=== PATIENT | female | born 1965 | race Caucasian/White ===

== ENCOUNTER 2018-01-13 13:52 | Emergency (ER) | payer SELFPAY ==
[~2018-01-13] VITALS: Ht 165.1 cm; Wt 60.0 kg
[~2018-01-13 13:52] MED LIST: Z.0.NO CURRENT MEDS
[2018-01-13 13:54] VITALS: BP 170/89; PULSE 96; RESP 16; TEMP 97.9; O2SAT 97
--- NOTE | 2018-01-13 14:39 | PD ---
HPI Chief Complaint: Numbness/Tingling Time Seen by Provider: 13:56 Travel History International Travel<30 days: No Contact w/Intl Traveler<30days: No Traveled to known affect area: No History of Present Illness HPI Patient 52-year-old female presents emergency department for evaluation of numbness tingling and painful electric shock sensations going down her left arm for the past 3 days. Patient states she does not have a primary care physician has not had a checkup in about 7 years. Patient went to outside facility and was told to come here because she might be having a stroke. She denies any focalized weakness. Her only other symptoms that she is endorsing some very vague visual blurriness throughout both eyes. She denies any chest pain denies any shortness of breath. States the pain is coming and going, left arm, context as above, associated signs and symptoms as above PFSH Past Medical History Anxiety: Yes Diminished Hearing: No Tetanus Vaccination: < 5 Years Influenza Vaccination: No ?: Not : 3 Past Surgical History Surgical History: No Previous Surgery Social History Alcohol Use: No Tobacco Use: No Substance Use: No Allergies-Medications (Allergen,Severity, Reaction): Coded Allergies: No Known Allergies (Unverified , 04/30/13) Reported Meds & Prescriptions Reported Meds & Active Scripts Active Prednisone 20 Mg Tab 60 Mg PO DAILY 5 Days Review of Systems Except as stated in HPI: all other systems reviewed are Neg Physical Exam Narrative GENERAL: Well-developed well-nourished, quite pleasant female in no obvious distress SKIN: Focused skin assessment warm/dry. HEAD: Atraumatic. Normocephalic. EYES: Pupils equal and round. No scleral icterus. No injection or drainage. ENT: No nasal bleeding or discharge. Mucous membranes pink and moist. NECK: Trachea midline. No JVD. CARDIOVASCULAR: Regular rate and rhythm. No murmur appreciated. RESPIRATORY: No accessory muscle use. Clear to auscultation. Breath sounds equal bilaterally. GASTROINTESTINAL: Abdomen soft, non-tender, nondistended. Hepatic and splenic margins not palpable. MUSCULOSKELETAL: No obvious deformities. No clubbing. No cyanosis. No edema. NEUROLOGICAL: Awake and alert. Cranial nerves II through XII are grossly intact and nonfocal, 5 out of 5 strength in all 4 extremities, cerebellar testing negative, ambulance with an even narrow-base gait, vision is grossly intact in all visual kumar PSYCHIATRIC: Appropriate mood and affect; insight and judgment normal. Data Data Last Documented VS Vital Signs Date Time Temp Pulse Resp B/P (MAP) Pulse Ox O2 Delivery O2 Flow Rate FiO2 01/13/18 16:34 89 15 164/83 (110) 99 01/13/18 14:47 Room Air 01/13/18 13:54 97.9 Orders Orders Electrocardiogram (01/13/18 14:35) Complete Blood Count With Diff (01/13/18 14:35) Comprehensive Metabolic Panel (01/13/18 14:35) Ckmb (Isoenzyme) Profile (01/13/18 14:35) Troponin I (01/13/18 14:35) Act Partial Throm Time (Ptt) (01/13/18 14:35) Prothrombin Time / Inr (Pt) (01/13/18 14:35) Chest, Single Ap (01/13/18 14:35) Ct Brain W/O Iv Contrast(Rout) (01/13/18 14:35) Ecg Monitoring (01/13/18 14:35) Iv Access Insert/Monitor (01/13/18 14:35) Oximetry (01/13/18 14:35) Sodium Chloride 0.9% Flush (Ns Flush) (01/13/18 14:45) Ed Discharge Order (01/13/18 16:16) Labs Laboratory Tests Test 01/13/18 14:45 White Blood Count 7.0 TH/MM3 Red Blood Count 4.99 MIL/MM3 Hemoglobin 14.4 GM/DL Hematocrit 42.1 % Mean Corpuscular Volume 84.3 FL Mean Corpuscular Hemoglobin 28.8 PG Mean Corpuscular Hemoglobin Concent 34.2 % Red Cell Distribution Width 13.4 % Platelet Count 252 TH/MM3 Mean Platelet Volume 8.6 FL Neutrophils (%) (Auto) 65.3 % Lymphocytes (%) (Auto) 22.9 % Monocytes (%) (Auto) 6.7 % Eosinophils (%) (Auto) 3.8 % Basophils (%) (Auto) 1.3 % Neutrophils # (Auto) 4.6 TH/MM3 Lymphocytes # (Auto) 1.6 TH/MM3 Monocytes # (Auto) 0.5 TH/MM3 Eosinophils # (Auto) 0.3 TH/MM3 Basophils # (Auto) 0.1 TH/MM3 CBC Comment DIFF FINAL Differential Comment Prothrombin Time 10.4 SEC Prothromb Time International Ratio 1.0 RATIO Activated Partial Thromboplast Time 23.7 SEC Blood Urea Nitrogen 9 MG/DL Creatinine 0.67 MG/DL Random Glucose 92 MG/DL Total Protein 7.7 GM/DL Albumin 4.3 GM/DL Calcium Level 9.2 MG/DL Alkaline Phosphatase 79 U/L Aspartate Amino Transf (AST/SGOT) 19 U/L Alanine Aminotransferase (ALT/SGPT) 28 U/L Total Bilirubin 0.4 MG/DL Sodium Level 142 MEQ/L Potassium Level 4.0 MEQ/L Chloride Level 103 MEQ/L Carbon Dioxide Level 32.0 MEQ/L Anion Gap 7 MEQ/L Estimat Glomerular Filtration Rate 92 ML/MIN Total Creatine Kinase 71 U/L Troponin I LESS THAN 0.02 NG/ML MDM Medical Decision Making Medical Screen Exam Complete: Yes Emergency Medical Condition: Yes Differential Diagnosis Acute stroke unlikely, paresthesias, degenerative disc disease, electrolyte abnormality, ACS unlikely. Narrative Course Patient room to the emergency department, she appears quite well in no obvious distress, her neuro exam is reassuring, initial workup with CT head, chest x-ray , EKG, blood work including troponin is negative. Think her symptoms are very atypical for ACS as well as stroke. I discussed that she needs to follow-up with his [facility] clinic for a complete checkup but there is no indication for further emergent workup at this time. She is stable for discharge Diagnosis Primary Impression: Arm paresthesia, left Referrals: [facility] Med/Other Pt SpecificInfo: Prescription(s) given Scripts Prednisone (Prednisone) 20 Mg Tab 60 MG PO DAILY for 5 Days, #15 TAB 0 Refills Prov: Mahseh Rodriguez MD 01/13/18 Disposition: 01 DISCHARGE HOME Condition: Stable Mahesh Rodriguez MD Jan 13, 2018 14:39
[2018-01-13] MEDS ORDERED: SODIUM CHLORIDE 0.9% FLUSH 10 ML FLUSH IVF PRN (14:45)
[2018-01-13 14:47] VITALS: O2SAT 100
[2018-01-13 15:00] LABS: AUTOMATED NEUTROPHIL # 4.6 TH/MM3 (1.8-7.7); BASOPHIL # 0.1 TH/MM3 (0-0.2); BASOPHIL % 1.3 % (0.0-2.0); EOSINOPHIL # 0.3 TH/MM3 (0-0.4); EOSINOPHIL % 3.8 % (0.0-4.0); HEMATOCRIT 42.1 % (35.0-46.0); HEMOGLOBIN 14.4 GM/DL (11.6-15.3); LYMPH % 22.9 % (9.0-44.0); LYMPHOCYTE # 1.6 TH/MM3 (1.0-4.8); MEAN CELL VOLUME 84.3 FL (80.0-100.0); MEAN CORPUSCULAR HEMOGLOBIN 28.8 PG (27.0-34.0); MEAN CORPUSCULAR HGB CONC 34.2 % (32.0-36.0); MEAN PLATELET VOLUME 8.6 FL (7.0-11.0); MONO % 6.7 % (0.0-8.0); MONOCYTE # 0.5 TH/MM3 (0-0.9); NEUT % 65.3 % (16.0-70.0); PLATELET COUNT 252 TH/MM3 (150-450); RED BLOOD COUNT 4.99 MIL/MM3 (4.00-5.30); RED CELL DISTRIBUTION WIDTH 13.4 % (11.6-17.2)
[2018-01-13 15:30] LABS: PROTHROMBIN TIME - PATIENT 10.4 SEC (9.8-11.6)
--- NOTE | 2018-01-13 15:37 | RADRPT ---
EXAM DATE/TIME: 01/13/2018 15:18 [facility] COMPARISON: No previous studies available for comparison. INDICATIONS : Left arm numbness, and tingling, dizziness. RADIATION DOSE: 34.55 CTDIvol (mGy) MEDICAL HISTORY : None SURGICAL HISTORY : None. ENCOUNTER: Initial ACUITY: 1 day PAIN SCALE: 0/10 LOCATION: cranial TECHNIQUE: Multiple contiguous axial images were obtained of the head. Using automated exposure control and adj ustment of the mA and/or kV according to patient size, radiation dose was kept as low as reasonably a chievable to obtain optimal diagnostic quality images. DICOM format image data is available electro nically for review and comparison. FINDINGS: CEREBRUM: The ventricles are normal for age. No evidence of midline shift, mass lesion, hemorrhage or acute in farction. No extra-axial fluid collections are seen. POSTERIOR FOSSA: The cerebellum and brainstem are intact. The 4th ventricle is midline. The cerebellopontine angle i s unremarkable. EXTRACRANIAL: The visualized portion of the orbits is intact. SKULL: The calvaria is intact. No evidence of skull fracture. CONCLUSION: No acute disease. Mahesh Barton MD on January 13, 2018 at 15:35 Board Certified Radiologist. This report was verified electronically.
[2018-01-13 15:52] LABS: ALBUMIN 4.3 GM/DL (3.4-5.0); AST (GOT) 19 U/L (15-37); BLOOD UREA NITROGEN 9 MG/DL (7-18); CALCIUM 9.2 MG/DL (8.5-10.1); CHLORIDE 103 MEQ/L (98-107); CREATININE 0.67 MG/DL (0.50-1.00); GLOMERULAR FILTRATION RATE 92 ML/MIN (>89); GLUCOSE,RANDOM 92 MG/DL (74-106); SODIUM (NA) 142 MEQ/L (136-145)
[2018-01-13 15:57] LABS: ALKALINE PHOSPHATASE 79 U/L (45-117); ALT (GPT) 28 U/L (10-53); TOTAL BILIRUBIN ADULT 0.4 MG/DL (0.2-1.0); TOTAL PROTEIN 7.7 GM/DL (6.4-8.2); TROPONIN I LESS THAN 0.02 NG/ML (0.02-0.05)
[2018-01-13] MEDS ORDERED: PRED20 PO (16:28)
--- NOTE | 2018-01-13 16:32 | RADRPT ---
EXAM DATE/TIME: 01/13/2018 15:02 [facility] COMPARISON: No previous studies available for comparison. INDICATIONS : Left arm tingling. MEDICAL HISTORY : None. SURGICAL HISTORY : None. ENCOUNTER: Initial ACUITY: 1 day PAIN SCORE: 4/10 LOCATION: Left arm. FINDINGS: A single view of the chest demonstrates the lungs to be symmetrically aerated without evidence of mas s, infiltrate or effusion. The cardiomediastinal contours are unremarkable. Osseous structures are intact. CONCLUSION: No acute disease. Ariel Guerin MD on January 13, 2018 at 16:30 Board Certified Radiologist. This report was verified electronically.
[2018-01-13 16:34] VITALS: BP 164/83
--- NOTE | 2018-01-14 18:28 | EKG ---
Date Performed: 01/13/2018 Time Performed: 14:45:54 PTAGE: 52 years EKG: Sinus rhythm POSSIBLE LEFT ATRIAL ENLARGEMENT BORDERLINE ECG NO PREVIOUS TRACING DOCTOR: Blaine Powers Interpretating Date/Time 01/14/2018 18:27:32
== END 2018-01-13 16:35 | disposition home or self-care (01) ==
LOC: NEPD 13:52
DX: R20.2 Paresthesia of skin (principal); M79.602 Pain in left arm
CPT/HCPCS: 70450; 71045; 80053; 82550; 84484; 85025; 85610; 85730; 93005